=== PATIENT | male | born 1970 | race Caucasian/White ===

== ENCOUNTER 2020-03-14 13:15 | Day surgery (SDC) | payer BC ==
[2020-03-14] MEDS ORDERED: LIDOcaine 2% 5ml jelly ONE (13:51)
== END 2020-03-14 14:28 | disposition home or self-care (01) ==
LOC: WOUND CARE 13:15
PROVIDERS: ATTEND Nurse Practitioner
DX: T81.89XA Other complications of procedures, not elsewhere classified, initial encounter (principal); L97.512 Non-pressure chronic ulcer of other part of right foot with fat layer exposed; Y92.238 Other place in hospital as the place of occurrence of the external cause; Y83.8 Other surgical procedures as the cause of abnormal reaction of the patient, or of later complication, without mention of misadventure at the time of the procedure
CPT/HCPCS: 97597; G0463

== ENCOUNTER 2020-03-22 09:00 | Day surgery (SDC) | payer BC ==
[2020-03-22] MEDS ORDERED: LIDOcaine 2% 5ml jelly ONE (09:28)
== END 2020-03-22 10:09 | disposition home or self-care (01) ==
LOC: WOUND CARE 09:00
PROVIDERS: ATTEND Nurse Practitioner
DX: T81.89XD Other complications of procedures, not elsewhere classified, subsequent encounter (principal); L97.512 Non-pressure chronic ulcer of other part of right foot with fat layer exposed; Y83.8 Other surgical procedures as the cause of abnormal reaction of the patient, or of later complication, without mention of misadventure at the time of the procedure
CPT/HCPCS: 97597

== ENCOUNTER 2020-03-29 09:08 | Day surgery (SDC) | payer BC ==
[2020-03-29] MEDS ORDERED: LIDOcaine 2% 5ml jelly ONE (10:47)
== END 2020-03-29 11:05 | disposition home or self-care (01) ==
LOC: WOUND CARE 09:08
PROVIDERS: ATTEND Nurse Practitioner
DX: T81.89XD Other complications of procedures, not elsewhere classified, subsequent encounter (principal); L97.512 Non-pressure chronic ulcer of other part of right foot with fat layer exposed; Y83.8 Other surgical procedures as the cause of abnormal reaction of the patient, or of later complication, without mention of misadventure at the time of the procedure
CPT/HCPCS: 93970; 97597

== ENCOUNTER 2020-04-05 08:53 | Day surgery (SDC) | payer BC ==
[2020-04-05] MEDS ORDERED: LIDOcaine 2% 5ml jelly ONE (09:03)
== END 2020-04-05 09:40 | disposition home or self-care (01) ==
LOC: WOUND CARE 08:53
PROVIDERS: ATTEND Nurse Practitioner
DX: T81.89XD Other complications of procedures, not elsewhere classified, subsequent encounter (principal); L97.512 Non-pressure chronic ulcer of other part of right foot with fat layer exposed; Y83.8 Other surgical procedures as the cause of abnormal reaction of the patient, or of later complication, without mention of misadventure at the time of the procedure
CPT/HCPCS: 97597